=== PATIENT | female | born 1960 | race Caucasian/White ===

== ENCOUNTER 2019-11-29 14:44 | Outpatient (CLI) | payer BC, SELFPAY ==
--- NOTE | 2019-11-29 14:54 | XR_ITS ---
WS: [id number] XR ribs LT 2V* [id number] REASON FOR EXAM: RIB PAIN LEFT FINDINGS: No cortical disruption is identified. No focal bone lesion identified. XR/XR ribs LT 2V* [id number] IMPRESSION: No significant rib abnormality.
--- NOTE | 2019-11-29 14:54 | XR_ITS ---
WS: [id number] XR wrist LT min 3V* [id number] REASON FOR EXAM: DE QUERVAINS TENOSYNOVITIS FINDINGS: No cortical disruption or focal bone lesion. Joint spaces of the left wrist are well-preserved. No soft tissue abnormality is identified. XR/XR wrist LT min 3V* [id number] IMPRESSION: No significant abnormality.
== END 2019-11-29 14:45 | disposition home or self-care (01) ==
LOC: RAD 14:50
PROVIDERS: PCP Electrodiagnostic Medicine; Visit Provider Electrodiagnostic Medicine
DX: M65.4 Radial styloid tenosynovitis [de Quervain] (principal); R07.81 Pleurodynia
CPT/HCPCS: 71100; 73110

== ENCOUNTER 2020-07-24 07:45 | Outpatient (CLI) | payer BC, SELFPAY ==
--- NOTE | 2020-07-24 07:52 | MM_ITS ---
WS: [id number] BILATERAL SCREENING DIGITAL MAMMOGRAM WITH CAD HISTORY: SCREENING COMPARISON: 08/19/2018 and 10/09/2016 Bilateral CC and MLO views submitted. Computer aided detection analyzed. Breast composition: The breasts are heterogeneously dense, which may obscure small masses. No suspici ous masses, microcalcifications or architectural distortion. Breast arterial calcifications and benig n calcifications. MM/[place] [id number] IMPRESSION: BI-RADS: 2-Benign FOLLOW UP: 1 Year Follow-up
== END 2020-07-24 07:46 | disposition home or self-care (01) ==
LOC: RADSHAW 07:49
PROVIDERS: PCP Electrodiagnostic Medicine; Visit Provider Electrodiagnostic Medicine
DX: Z12.31 Encounter for screening mammogram for malignant neoplasm of breast (principal)
CPT/HCPCS: 77067

== ENCOUNTER 2020-10-22 08:02 | Outpatient (CLI) | payer BC, SELFPAY ==
--- NOTE | 2020-10-22 08:13 | XRR_ITS ---
PROCEDURE INFORMATION: Exam: XR Right Hip Exam date and time: 10/22/2020 8:13 AM Age: 60 years old Clinical indication: Hip pain; Right hip; Patient HX: Pain to hip for several months, no known injury; Additional info: Chronic R hip pain TECHNIQUE: Imaging protocol: XR Right hip. Views: 1 view hip with pelvis when performed. COMPARISON: No relevant prior studies available. FINDINGS: Bones/joints: Moderate degenerative narrowing of the hip with subchondral sclerotic change. No acute fracture. Soft tissues: Unremarkable. XR/XR hip RT 2-3V wo/w pel* [id number] IMPRESSION: Moderate DJD of the right hip.
== END 2020-10-22 08:03 | disposition home or self-care (01) ==
PROVIDERS: PCP Electrodiagnostic Medicine; Visit Provider Electrodiagnostic Medicine
DX: G89.29 Other chronic pain (principal); M16.11 Unilateral primary osteoarthritis, right hip
CPT/HCPCS: 73502

== ENCOUNTER → 2021-02-04 08:30 | Outpatient (BNVA) | payer SELFPAY | PROVIDERS: PCP Electrodiagnostic Medicine; Referring Provider Electrodiagnostic Medicine; Visit Provider Dermatology | DX: Z01.89 Encounter for other specified special examinations (principal) ==

== ENCOUNTER 2021-05-16 08:32 | Outpatient (CLI) | payer BC, SELFPAY ==
--- NOTE | 2021-05-16 08:42 | XR_ITS ---
WS: [id number] DEXA (DUAL ENERGY X-RAY ABSORPTIOMETRY) Bone mineral density was performed using a Certain machine. HISTORY: POSTMENOPAUSAL STATUS COMPARISON: 10/11/2018 Lumbar spine BMD (L1-L4): 0.884 g/cm2 T score: -2.5 Z score: -1.7 Total hip BMD: Left: 0.839 g/cm2. T score: -1.3 Z score: -0.7 Right: 0.848 g/cm2. T score: -1.3 Z score: -0.6 10 year probability of a major osteoporotic fracture is 10%. Compared to the prior study from 10/11/2018. Lumbar spine bone mineral density has decreased by 1.7%. Bilateral hips bone mineral density has decreased by 0.6%. XR/XR DEXA axial skeleton* [id number] IMPRESSION: OSTEOPOROSIS based upon the WHO classification for females. As compared to the prior examination there has not been a significant change in bone mineral density.
== END 2021-05-16 08:33 | disposition home or self-care (01) ==
PROVIDERS: PCP Electrodiagnostic Medicine; Visit Provider Electrodiagnostic Medicine
DX: Z00.00 Encounter for general adult medical examination without abnormal findings (principal); Z78.0 Asymptomatic menopausal state; M81.0 Age-related osteoporosis without current pathological fracture
CPT/HCPCS: 77080

== ENCOUNTER → 2022-05-05 08:08 | Outpatient (BNVA) | payer SELFPAY | PROVIDERS: PCP Electrodiagnostic Medicine; Visit Provider Electrodiagnostic Medicine | DX: Z13.6 Encounter for screening for cardiovascular disorders (principal); Z01.89 Encounter for other specified special examinations ==

== ENCOUNTER 2022-11-18 09:36 | Outpatient (CLI) | payer BC, SELFPAY ==
--- NOTE | 2022-11-18 09:46 | USCV_ITS ---
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
== END 2022-11-18 09:37 | disposition home or self-care (01) ==
PROVIDERS: PCP Electrodiagnostic Medicine; Visit Provider Electrodiagnostic Medicine
DX: I73.9 Peripheral vascular disease, unspecified (principal); R53.1 Weakness
CPT/HCPCS: 93922

== ENCOUNTER 2023-01-13 11:40 | Outpatient (CLI) | payer BC, SELFPAY ==
--- NOTE | 2023-01-13 11:43 | MM_ITS ---
WS: [id number] BILATERAL 3D TOMOSYNTHESIS DIGITAL SCREENING MAMMOGRAPHY WITH CAD CLINICAL INFORMATION: SCREENING HISTORY: Screening mammogram. No current complaints. COMPARISON: 2020 TECHNIQUE: Bilateral CC and MLO views. FINDINGS: The breasts are composed of heterogeneous fibroglandular density tissue, which can limit the detectio n of small underlying mass lesions. No suspicious mass, asymmetry, calcifications, or architectural d istortion. No evidence of malignancy. Vascular calcification. Lucent centered and punctate calcificat ions. IMPRESSION: MM/[place] [id number] BI-RADS: 2-Benign FOLLOW UP: 1 Year Follow-up Recommend return to annual screening mammography.
== END 2023-01-13 11:41 | disposition home or self-care (01) ==
LOC: RAD 11:40
PROVIDERS: PCP Electrodiagnostic Medicine; Visit Provider Electrodiagnostic Medicine
DX: Z12.31 Encounter for screening mammogram for malignant neoplasm of breast (principal)
CPT/HCPCS: 77063; 77067

== ENCOUNTER 2024-02-01 07:59 | Outpatient (CLI) | payer SELFPAY ==
[2024-02-01 08:49] LABS: HF Add Manual Diff No
[2024-02-01 08:57] LABS: Basophils % 0.3 %; Eosinophils # 0.1 10^3/uL (0.0-0.8); Eosinophils % 0.9 %; Hematocrit 39.9 % (36-47); Lymphocytes # 1.2 10^3/uL (0.8-4.8); Lymphocytes % 19.2 %; Mean Corpuscular HGB Conc 33.3 g/dL (30-55); Mean Corpuscular Hemoglobin 31.2 pg (27-33); Mean Corpuscular Volume 93.7 fl (85-98); Mean Platelet Volume 9.5 fL (7.4-10.4); Monocytes # 0.5 10^3/uL (0.2-0.9); Monocytes % 8.5 %; Neutrophils # 4.49 10^3/uL (1.8-7.7); Neutrophils % 70.8 %; Nucleated Red Blood Cells % 0 %; Platelet Count 171 10^3/cmm (157-399); Red Blood Count 4.26 10^6/uL (3.85-5.65); Red Cell Distribution Width 11.6 % (12.1-15.1); White Blood Count 6.35 10^3/uL (3.29-11.43)
[2024-02-01 09:05] LABS: Estmated Average Glucose 105; Hemoglobin A1C 5.3 % (4.0-6.0)
[2024-02-01 09:36] LABS: 25 Hydroxy Vitamin D 70 ng/mL (30-100); Alanine Aminotransferase 21 U/L (0-33); Albumin Level 4.4 g/dL (3.5-5.2); Alkaline Phosphatase 132 U/L (35-105); Anion Gap 13.3 (5-19); Aspartate Amino Transferase 21 U/L (0-32); Blood Urea Nitrogen 11 mg/dL (8-23); Calcium 9.6 mg/dL (8.5-10.5); Carbon Dioxide 27 mmol/L (22-29); Chloride 104 mmol/L (98-107); Cholesterol 168 mg/dL (0-200); Globulin 2.5 g/dL (1.3-4.6); Glomerular Filtration Rate 124.2 mL/min (90-130); Glucose 126 mg/dL (65-115); HDL Cholesterol 48 mg/dL (60-100); LDL Cholesterol Calculated 96 mg/dL (50-129); Osmolality Calculated 291 mOsm/kg (285-295); Potassium 4.3 mmol/L (3.5-5.1); Sodium 140 mmol/L (136-145); Thyroid Stimulating Hormone 0.84 uIU/mL (0.27-4.20); Total Bilirubin 0.5 mg/dL (0.15-1.2); Total Protein 6.9 g/dL (6.6-8.7); Triglycerides 119 mg/dL (0-150)
== END 2024-02-01 08:00 | disposition home or self-care (01) ==
LOC: LAB 08:01
PROVIDERS: PCP Electrodiagnostic Medicine; Visit Provider Dermatology
DX: Z13.9 Encounter for screening, unspecified (principal)
CPT/HCPCS: 36415

== ENCOUNTER 2024-06-06 12:58 | Outpatient (CLI) | payer MEDICARE, OTHER, SELFPAY ==
--- NOTE | 2024-06-06 13:09 | MR_ITS ---
WS: [id number] MRI CERVICAL SPINE NONCONTRAST TECHNIQUE: Sagittal T1, T2 and STIR imaging. Axial T2, gradient, and fiesta imaging. CLINICAL INFORMATION: CHRONIC NECK PAIN COMPARISON: None. FINDINGS: Straightening of the normal cervical lordosis. Cord signal is normal. Slight anterolisthesis C3 on C4. C2-C3: Mild facet arthropathy. C3-C4: Slight anterolisthesis. Mild facet arthropathy. Spinal canal and foramina are patent. C4-C5: Moderate LEFT facet arthropathy. Moderate LEFT bony foraminal narrowing. Spinal canal is patent. C5-C6: Slight anterolisthesis. Moderate RIGHT bony foraminal narrowing. Mild facet arthropathy. C6-C7: Disc osteophyte protrusion with slight contact of the cervical cord. Spinal canal remains patent. Moderate bilateral bony foraminal narrowing. C7-T1: Moderate RIGHT bony foraminal narrowing. Spinal canal and LEFT foramina are patent. Visualized brain stem structures: Normal. Prevertebral soft tissues: Normal. Small bilateral thyroid nodules MR/MR cervical spin wo con* [id number] IMPRESSION: 1. Straightening of the normal cervical lordosis. Slight anterolisthesis C3 on C4 C4 on C5 and C5 on C6. 2. Disc osteophyte protrusion C6-7 with slight contact of the cervical cord. N o high-grade central canal stenosis. 3. Moderate bony foraminal narrowing worse at LEFT C4-5, RIGHT C5-6, bilateral C6-7 and RIGHT C7-T1
== END 2024-06-06 12:59 | disposition home or self-care (01) ==
PROVIDERS: PCP Electrodiagnostic Medicine; Visit Provider Electrodiagnostic Medicine
DX: M48.02 Spinal stenosis, cervical region (principal); M25.78 Osteophyte, vertebrae; M50.223 Other cervical disc displacement at C6-C7 level; M47.892 Other spondylosis, cervical region; M48.03 Spinal stenosis, cervicothoracic region
CPT/HCPCS: 72141

== ENCOUNTER 2024-06-30 13:01 | Outpatient (CLI) | payer MEDICARE, OTHER, SELFPAY ==
--- NOTE | 2024-06-30 13:06 | MM_ITS ---
WS: [id number] BILATERAL 3D TOMOSYNTHESIS DIGITAL SCREENING MAMMOGRAPHY WITH CAD CLINICAL INFORMATION: SCREENING HISTORY: Screening mammogram. No current complaints. COMPARISON: 2022 TECHNIQUE: Bilateral CC and MLO views. FINDINGS: Scattered fibroglandular densities bilaterally. No suspicious focal mass, asymmetry, calcifications, or architectural distortion. No evidence of malignancy. Vascular calcification. Benign calcifications. MM/MM scr tomosynthesis [id number] IMPRESSION: DENSITY: There are scattered areas of fibroglandular density. BI-RADS: 2 - Benign. FOLLOW UP: 1 Year Follow-up Recommend return to annual screening mammography.
--- NOTE | 2024-06-30 13:06 | XR_ITS ---
WS: [id number] SCREENING DEXA SCAN Molecular Detection CLINICAL INFORMATION: POSTMENOPAUSAL COMPARISON: 2021 FINDINGS: The L1-L4 bone mineral density measures 0.833 g/cm2. This corresponds to a T score score of -2.9 and Z score of -1.6. Left forearm bone mineral density measures 0.74. This corresponds to a T score of -1.5 and Z score of -0.2 XR/XR DEXA axial skeleton* [id number] IMPRESSION: Osteoporosis lumbar spine. Osteopenia LEFT forearm Bone mineralization lumbar spine decreased -5.8%
== END 2024-06-30 13:02 | disposition home or self-care (01) ==
PROVIDERS: PCP Electrodiagnostic Medicine; Visit Provider Electrodiagnostic Medicine
DX: Z12.31 Encounter for screening mammogram for malignant neoplasm of breast (principal); Z78.0 Asymptomatic menopausal state; M81.0 Age-related osteoporosis without current pathological fracture; M85.88 Other specified disorders of bone density and structure, other site; R92.323 Mammographic fibroglandular density, bilateral breasts; R92.1 Mammographic calcification found on diagnostic imaging of breast
CPT/HCPCS: 77063; 77067; 77080

== ENCOUNTER 2024-07-10 07:31 | Outpatient (RCR) | payer MEDICARE, OTHER, SELFPAY | END 2024-07-22 23:59 | disposition home or self-care (01) | LOC: SPT 07:31 | PROVIDERS: PCP Electrodiagnostic Medicine; Visit Provider Electrodiagnostic Medicine | DX: M54.2 Cervicalgia (principal); G89.29 Other chronic pain | CPT/HCPCS: 97110; 97161 ==

== ENCOUNTER 2024-07-23 05:00 | Outpatient (RCR) | payer MEDICARE, OTHER, SELFPAY | END 2024-08-21 23:59 | disposition home or self-care (01) | LOC: SPT 05:00 | PROVIDERS: PCP Electrodiagnostic Medicine; Visit Provider Electrodiagnostic Medicine | DX: M54.2 Cervicalgia (principal); G89.29 Other chronic pain | CPT/HCPCS: 97110 ==

== ENCOUNTER 2024-08-22 06:30 | Outpatient (RCR) | payer MEDICARE, OTHER, SELFPAY | END 2024-09-21 23:59 | disposition home or self-care (01) | LOC: SPT 06:30 | PROVIDERS: PCP Electrodiagnostic Medicine; Visit Provider Electrodiagnostic Medicine | DX: M54.2 Cervicalgia (principal); G89.29 Other chronic pain | CPT/HCPCS: 97110 ==

== ENCOUNTER 2024-09-22 06:00 | Outpatient (RCR) | payer MEDICARE, OTHER, SELFPAY | END 2024-10-22 23:59 | disposition home or self-care (01) | LOC: SPT 06:00 | PROVIDERS: PCP Electrodiagnostic Medicine; Visit Provider Electrodiagnostic Medicine | DX: M54.2 Cervicalgia (principal); G89.29 Other chronic pain | CPT/HCPCS: 97110 ==

== ENCOUNTER 2024-10-23 06:30 | Outpatient (RCR) | payer MEDICARE, OTHER, SELFPAY | END 2024-11-13 09:52 | disposition home or self-care (01) | LOC: SPT 06:30 | PROVIDERS: PCP Electrodiagnostic Medicine; Visit Provider Electrodiagnostic Medicine | DX: M54.2 Cervicalgia (principal); G89.29 Other chronic pain | CPT/HCPCS: 97110 ==